=== PATIENT | male | born 1955 | race Native Hawaiian/Other Pacific Islander ===

== ENCOUNTER 2016-03-17 14:43 | Outpatient (CLI) | payer BC ==
[2016-03-17 15:27] LABS: BASOPHILS % 0.6 (0.0-1.5); LYMPHOCYTES # 1.8 # k/uL (0.6-4.0); MEAN CORPUSCULAR HEMOGLOBIN 28.1 pg (28.0-34.0); MONOCYTES # 0.4 # k/uL (0.0-0.9); NEUTROPHILS # 3.7 # k/uL (1.4-7.7)
[2016-03-17 15:53] LABS: eGFR (African) > 60; eGFR (Non-African) > 60
--- NOTE | 2016-03-17 18:37 | Diagnostic Imaging Report ---
[facility] [id number] [facility].[address] [address] Report Submission Date: Mar 17, 2016 4:40:17 PM TRACKMAN Patient Study Name: YARA DOUGLAS Date: Mar 17, 2016 3:34:46 PM TRACKMAN Modality Type: CR Gender: M Description: SPINE : 59 Institution: [facility] Physician: MKEHI LEWIS Lumbar spine, 3 views. History: Lower back pain, PT STATES POSSIBLE RHEUMATOID ARTHRITIS (Hx) Findings: The vertebral height and vertebral alignment are normal. No significant invertebral disc space narrowing is identified. The sacroiliac joints are normal. Impression: 1. No osseous abnormality. Electronically signed on Mar 17, 2016 4:40:17 PM TRACKMAN by: Emanuel TOLENTINO
--- NOTE | 2016-03-17 18:38 | Diagnostic Imaging Report ---
[facility] [address] [facility].[address] [address] Report Submission Date: Mar 17, 2016 4:41:37 PM RECEIVING CHECKER Patient Study Name: YARA DOUGLAS Date: Mar 17, 2016 3:46:49 PM RECEIVING CHECKER Modality Type: CR Gender: M Description: PELVIS : 59 Institution: [facility] Physician: MEKHI LEWIS Sacroiliac joints, 2 views. History: Lower back pain and possible rheumatoid arthritis. Findings: The bilateral sacroiliac joints are normal. There is no acute fracture. The joint is normal without evidence of narrowing, sclerosis, or erosion. Impression: 1. No osseous abnormality. Normal sacroiliac joints. Electronically signed on Mar 17, 2016 4:41:37 PM RECEIVING CHECKER by: Emanuel TOLENTINO
--- NOTE | 2016-03-20 09:32 | OP Clinic Progress Note ---
REFERRING PHYSICIAN: Dr. Isaac Briggs Dear Dr. Briggs: REASON FOR VISIT: I had the pleasure of seeing Mirza Garza in follow up for his psoriatic arthritis. I started him on methotrexate 3 tablets weekly and he has tolerated that well with no shortness of breath, cough, mouth sores, nausea or vomiting. He has not noted any improvement in his skin. He still has involvement of the elbows and most of his back and abdomen. His elbows continue to bother him with swelling and pain. He has healed well from his bilateral knee replacements and is quite content. PAST MEDICAL HISTORY: 1. Bilateral knee replacements. 2. Psoriasis. 3. Headaches. PRESENT MEDICATIONS: 1. Celebrex 200 mg daily. 2. Aspirin. 3. [place]. 4. Methotrexate 3 tablets weekly. 5. Folic acid, however, has not been taking it. ALLERGIES: He has no known drug allergies. REVIEW OF SYSTEMS: No fevers, chills, sweats, chest pain, shortness of breath, cough, wheezing, nausea, vomiting, or diarrhea. Skin rash is unchanged. PHYSICAL EXAMINATION: GENERAL: He looks well. VITAL SIGNS: T: 97, R: 12, heart rate of 80, BP: 130/90. HEENT: Sclerae are anicteric. Conjunctivae are pink. No stomatitis or glossitis. LUNGS: Clear bilaterally with no crackles or wheezing. HEART: Regular rhythm. ABDOMEN: Soft and nontender. VASCULAR: No edema or cyanosis. PERIPHERAL JOINTS: The DIPs and PIPs show no swelling MCPs and wrists are unremarkable. Both elbows, however, are swollen with mild flexion deformities. Shoulders, AC/SC and TMJ joints move well. Hips and knees were unremarkable. Back: Straightening with no lumbar lordosis. Skin: Extensive psoriatic plaques over the elbows and trunk. IMPRESSION: 1. Psoriasis. 2. Psoriatic arthritis. PLAN: 1. I am bumping up his methotrexate to 6 tablets weekly. 2. I gave him another prescription for folic acid supplementation. 3. I am x-raying his lumbar spine and his SI joints today for possible axial disease. 4. We will be checking his labs for disease activity and drug toxicity. 5. I am also screening him for viral hepatitis and tuberculosis. 6. I will see him back in 4 weeks. Thank you very much for the opportunity to participate in the care of your patient. Best regards, cc: Dr. Isaac TOLENTINO
== END 2016-03-17 14:44 ==
LOC: RHEU 14:43
PROVIDERS: ATTEND Internal Medicine
DX: L40.50 Arthropathic psoriasis, unspecified (principal); Z79.899 Other long term (current) drug therapy; M54.10 Radiculopathy, site unspecified
CPT/HCPCS: 36415; 72100; 72202; 80053; 85025; 85651; 86140; 86480; 86803; 87340; 99214

== ENCOUNTER 2016-04-14 14:47 | Outpatient (CLI) | payer BC ==
[2016-04-14 15:41] LABS: BASOPHILS % 0.3 (0.0-1.5); EOSINOPHILS % 1.7 % (0.0-6.8); LYMPHOCYTES # 1.7 # k/uL (0.6-4.0); MEAN CORPUSCULAR HEMOGLOBIN 27.5 pg (28.0-34.0); MONOCYTES # 0.4 # k/uL (0.0-0.9); MONOCYTES % 6.2 % (0.0-11.0); NEUTROPHILS # 4.2 # k/uL (1.4-7.7)
[2016-04-14 16:04] LABS: eGFR (African) > 60; eGFR (Non-African) > 60
--- NOTE | 2016-04-15 07:06 | Diagnostic Imaging Report ---
[facility] [id number] [facility] [address] [place], [place]. [address] ~ ~ ~ ~ Report Submission Date: Apr 14, 2016 4:05:58 PM LOTTERIES AGENT Patient ~ Study Name: YARA DOUGLAS ~ Date: Apr 14, 2016 3:36:58 PM LOTTERIES AGENT ~ Modality Type: CR Gender: M ~ Description: CHEST : 59 ~ Institution: [facility] Physician JOSHUA GAMING ~ ~ ~ Chest two views HISTORY: ~ Cough and difficulty breathing FINDINGS: ~ Low lung volumes are observed. ~Central pulmonary artery enlargement is present. ~There is no infiltrate or pleural effusion. ~Heart size is normal. IMPRESSION: ~ Low lung volumes and equivocal pulmonary hypertension. ~ Electronically signed on Apr 14, 2016 4:05:58 PM LOTTERIES AGENT by: Sy TOLENTINO
--- NOTE | 2016-04-17 10:16 | OP Clinic Progress Note ---
REFERRING PHYSICIAN: Dr. Isaac Briggs Dear Dr. Briggs: REASON FOR VISIT: I had the pleasure of seeing Mirza Garza in follow up of his psoriasis and psoriatic arthritis. He is on 6 tablets of methotrexate weekly and has not noted any improvement in his skin. He still has pain in his knees and his hands. The main issue is, looking at his labs, the CBC and CMP are unremarkable, however, his QuantiFERON TB Gold test came back positive. Hepatitis B and C were negative. PAST MEDICAL AND SURGICAL HISTORY: 1. Bilateral knee replacements. 2. Psoriasis. 3. Headaches. 4. Psoriatic arthritis. PRESENT MEDICATIONS: As above. ALLERGIES: He has no drug allergies. REVIEW OF SYSTEMS: He does have a dry cough. He cannot recall his last chest x-ray. He lives with 1 person. He has had no fevers, chills, sweats, or night sweats. No weight loss. No productive cough. No hemoptysis. No belly pain, nausea, or vomiting. PHYSICAL EXAMINATION: VITAL SIGNS: T: 97.2, R: 18, heart rate 87, BP: 130/80. HEENT: Sclerae are anicteric. Conjunctivae are pink. No stomatitis or glossitis. LUNGS: Clear. HEART: Regular rhythm. ABDOMEN: Soft. SKIN: He has got scaly patches of psoriasis on his elbows and knees. JOINTS: Some tenderness and swelling of his fingers. IMPRESSION: 1. Psoriasis and psoriatic arthritis. I am bumping up his methotrexate to 8 tablets weekly. Continue folic acid. 2. Positive QuantiFERON TB Gold test. I am obtaining a chest x-ray and we will make arrangements for a consultation with Infectious Disease. Thank you very much. Best regards, cc: Dr. Isaac Briggs [facility] CENT[facility]
== END 2016-04-14 14:50 ==
LOC: RHEU 14:47
PROVIDERS: ATTEND Internal Medicine
DX: Z51.81 Encounter for therapeutic drug level monitoring (principal); Z79.899 Other long term (current) drug therapy; L40.50 Arthropathic psoriasis, unspecified
CPT/HCPCS: 36415; 71020; 80053; 85025; 85651; 86140; 86480

== ENCOUNTER 2016-06-16 13:41 | Outpatient (CLI) | payer BC ==
[2016-06-16 15:21] LABS: BASOPHILS % 0.5 (0.0-1.5); EOSINOPHILS % 1.6 % (0.0-6.8); MEAN CORPUSCULAR VOLUME 85.4 fl (80.0-100.0); MONOCYTES % 5.3 % (0.0-11.0)
[2016-06-16 15:32] LABS: eGFR (African) > 60; eGFR (Non-African) > 60
--- NOTE | 2016-06-19 09:21 | OP Clinic Progress Note ---
REFERRING PHYSICIAN: Dr. Isaac Briggs REASON FOR VISIT: Mirza Garza returns for follow up for psoriatic arthritis, specifically arthritis mutilans. He thinks overall his joints are improved. His skin has slightly improved. He still has some pain at his elbows and morning stiffness is maybe 15 minutes. He has no neck and back pain. He has had no fevers, chills, or sweats. He is no longer coughing. On his last visit, his QuantiFERON-TB Gold was repeated and it is now negative. He did, however, see Dr. Torres from infectious disease and complained of a cough with hemoptysis. AFB cultures were obtained and dropped off at [facility]. Results have not yet returned. A chest x-ray on April 14 was unremarkable. Hepatitis B and C were negative. PAST MEDICAL HISTORY: 1. Bilateral knee replacements. 2. Psoriasis. 3. Headaches. 4. Psoriatic arthritis. PRESENT MEDICATIONS: 1. Methotrexate 8 tablets weekly. 2. Folic acid 1 mg daily. REVIEW OF SYSTEMS: No fevers, chills, sweats, chest pain, shortness of breath, cough, wheezing, nausea, vomiting, or diarrhea. PHYSICAL EXAMINATION: GENERAL: On exam, he looks well. VITAL SIGNS: Weight: 221 pounds. Height: 5 feet 9 inches. T: 97.7, R: 18 , heart rate 71, BP: 130/82. HEENT: Sclerae are anicteric. Conjunctivae are pink. No stomatitis or glossitis. LUNGS: Clear bilaterally with no crackles or wheezing. HEART: Regular rhythm. ABDOMEN: Soft and nontender. VASCULAR: No edema or cyanosis. PERIPHERAL JOINTS: No synovitis at the DIPs, PIPs, MCPs, wrists, elbows, shoulders, hips, knees, ankles, and feet. His fingers appear improved. SKIN: Still some scaly patches of psoriasis at the elbows and lower legs. DIAGNOSTIC STUDIES: Note his last sedimentation rate was 14 on April 14 and CBC within normal limits. CRP was 3.19. AST and ALT were 17 and 17, respectively. Creatinine was 0.7. 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 PLAN: 1. We will obtain his AFB studies. 2. No changes at this time. Will not proceed to biologic therapy at this time , pending AFB results. 3. I will see the patient in 2 months. Thank you very much. Best regards, cc: Dr. Isaac TOLENTINO
== END 2016-06-16 13:42 ==
LOC: RHEU 13:41
PROVIDERS: ATTEND Internal Medicine
DX: L40.50 Arthropathic psoriasis, unspecified (principal)
CPT/HCPCS: 36415; 80053; 85025; 85651; 86140; 99214

== ENCOUNTER 2016-08-11 14:14 | Outpatient (CLI) | payer BC ==
--- NOTE | 2016-08-15 12:43 | OP Clinic Progress Note ---
REASON FOR VISIT: Mirza Garza returns for follow up of psoriatic arthritis, i.e. arthritis mutilans. He is not doing well. He is having excruciating pain in his left elbow, moderate pain in the right elbow. He still has puffiness in his hands. His skin has not improved. Morning stiffness is about 30 minutes. He has had a positive QuantiFERON-TB Gold. Sputum culture has been negative. Chest x-ray is unremarkable. He has been on Rifampin 300 mg 2 tablets daily for the past month. Hepatitis B and hepatitis C were negative. PAST MEDICAL HISTORY: 1. Bilateral knee replacements. 2. Psoriasis. 3. Psoriatic arthritis. 4. Chronic headaches. PRESENT MEDICATIONS: 1. Methotrexate 8 tablets weekly. 2. Folic acid 1 mg daily. REVIEW OF SYSTEMS: No fevers, chills, sweats, chest pain, shortness of breath, cough, or wheezing. No change in his weight. PHYSICAL EXAMINATION: General: On exam, he looks well. VITAL SIGNS: He is afebrile. Height: 6 feet. Weight: 220. T: 97.6, R: 12, heart rate: 76, BP: 130/80. HEENT: Sclerae are anicteric. Conjunctivae are pink. No stomatitis or glossitis. LUNGS: Clear bilaterally with no crackles or wheezing. HEART: Regular rhythm. ABDOMEN: Soft and nontender. VASCULAR: No edema or cyanosis. PERIPHERAL JOINTS: Synovitis at the DIPs and PIPs and the toes. Left elbow flexion deformity with swelling and tenderness. Right elbow is tender. Wrists , shoulders, and groin is unremarkable. Bilateral knee replacement scars are noted. SKIN: Extensive psoriatic plaques about the knees and elbows. IMPRESSION: 1. Psoriasis. 2. Psoriatic arthritis, failing his present regimen. 3. Latent tuberculosis (TB), on treatment. PLAN: 1. I would like to start this patient on Humira 40 mg subcutaneous every other week and this may require a letter of medical necessity. Note, his last labs from June 16, sedimentation rate remains elevated at 31. CBC was within normal limits. CRP elevated at 1.69. AST and ALT are normal. AFB cultures were negative x3. 2. Follow up in 2 months. Thank you very much. cc: Dr. Isaac TOLENTINO
== END 2016-08-11 14:24 ==
LOC: RHEU 14:14
PROVIDERS: ATTEND Internal Medicine
DX: L40.50 Arthropathic psoriasis, unspecified (principal); Z79.899 Other long term (current) drug therapy
CPT/HCPCS: 99214

== ENCOUNTER 2016-11-10 14:18 | Outpatient (CLI) | payer BC ==
--- NOTE | 2016-11-13 15:52 | OP Clinic Progress Note ---
REASON FOR VISIT: Mirza Garza returns for follow up on his psoriasis and psoriatic arthritis , subtype arthritis mutilans. He failed methotrexate. He has not been taking it. He has had 2 injections of Humira and he is doing great. His skin is improved. The swelling and pain in his elbows have resolved. He has full range of motion. The puffiness in his hands and toes has also improved. Morning stiffness is less than 15 minutes. History of positive QuantiFERON-TB Gold and negative sputum and a normal chest x -ray. He has completed rifampin. Hepatitis B and C were negative. PAST MEDICAL HISTORY: 1. Bilateral knee replacements. 2. Psoriasis. 3. Psoriatic arthritis. 4. Chronic headaches. PRESENT MEDICATIONS: Humira 40 mg subcutaneous every other week. REVIEW OF SYSTEMS: No fevers, chills, sweats, chest pain, shortness of breath, cough, wheezing, nausea, vomiting, or diarrhea. PHYSICAL EXAMINATION: VITAL SIGNS: Height: 6 feet. Weight: 222. T: 97.5, R: 18, Heart rate of 60 , BP: 130/78. HEENT: Sclerae are anicteric. Conjunctivae are pink. No stomatitis or glossitis. LUNGS: Clear bilaterally with no crackles or wheezing. HEART: Regular rhythm. ABDOMEN: Soft and nontender. VASCULAR: No edema or cyanosis. Skin: Scalp is totally clear of psoriasis. Elbows show minimal lesions. Minimal lesions on the legs. JOINTS: DIPs, PIPs, MCPs, wrists, elbows, shoulders, hips, knees, ankles, and feet show no active synovitis. IMPRESSION: 1. Psoriasis. 2. Arthritis mutilans. PLAN: He is doing well. Continue Humira. I will see him in February. Thank you very much. cc: Dr. Isaac TOLENTINO
== END 2016-11-10 14:20 ==
LOC: RHEU 14:18
PROVIDERS: ATTEND Internal Medicine
DX: L40.9 Psoriasis, unspecified (principal); L40.52 Psoriatic arthritis mutilans
CPT/HCPCS: 99213

== ENCOUNTER 2017-04-13 13:12 | Outpatient (CLI) | payer BC ==
--- NOTE | 2017-04-16 11:57 | OP Clinic Progress Note ---
REASON FOR VISIT: Mirza Garza returns for follow up on his psoriasis with psoriatic mutilans. He is doing very well. He has no joint pain. His skin is a little active but he is quite happy. He remains on Humira subcutaneous every other week. Let us recall that he has failed methotrexate and also had an issue of tolerating it causing flu-like symptoms. Otherwise, pain is zero over 10. Morning stiffness is less than 15 minutes. History of positive QuantiFERON-TB Gold. He has completed his course of Rifampin. The infectious disease note is reviewed. It suggested the QuantiFERON-TB Gold may remain positive in the future. They also suggested hepatitis testing, which I have already done and those were negative. PAST MEDICAL HISTORY: 1. Bilateral knee replacements. 2. Psoriasis. 3. Arthritis mutilans. 4. Chronic headaches. PRESENT MEDICATIONS: Humira subcutaneous every other week. REVIEW OF SYSTEMS: He has had no fevers, chills, sweats, chest pain, shortness of breath, cough, wheezing, nausea, vomiting, or diarrhea. PHYSICAL EXAMINATION: VITAL SIGNS: Height: 6 feet. Weight: 236. T: 97, R: 20, heart rate 72, BP : 139/76. HEENT: Some scalp lesions of psoriasis, otherwise, sclerae are anicteric. Conjunctivae are pink. No stomatitis or glossitis. LUNGS: Clear with no crackles or wheezing. HEART: Regular rhythm. ABDOMEN: Soft and nontender. SKIN: Psoriatic plaques on the right elbow and right anterior lower leg. VASCULAR: Shows no edema or cyanosis. PERIPHERAL JOINTS: DIPs, PIPs, MCPs, wrists, elbows, shoulders, hips, knees, ankles, and feet all show no deformities. No synovitis. No tenderness. 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 IMPRESSION AND PLAN: 1. Psoriasis. 2. Psoriatic arthritis subtype mutilans. 3. High risk drug. 4. History of positive QuantiFERON-TB Gold. Completed the treatment course for latent tuberculosis infection. Thank you very much. cc: Dr. Brigitte TOLENTINO
== END 2017-04-13 13:13 ==
LOC: RHEU 13:12
PROVIDERS: ATTEND Internal Medicine
DX: L40.9 Psoriasis, unspecified (principal); L40.52 Psoriatic arthritis mutilans; Z79.899 Other long term (current) drug therapy
CPT/HCPCS: 99213; 99214

== ENCOUNTER 2017-10-12 13:17 | Outpatient (CLI) | payer BC ==
--- NOTE | 2017-10-12 17:27 | OP Clinic Progress Note ---
REASON FOR VISIT: Mirza Garza returns for follow up on his psoriasis and psoriatic arthritis. He has previously failed synthetic DMARDs and was doing well on Humira until a couple of months ago when he noticed worsening psoriasis. It now involves the trunk and all 4 extremities. He has also developed some lesions in the palm. Morning stiffness is 15 minutes and he has no swollen tender joints. PAST MEDICAL AND SURGICAL HISTORY: 1. Bilateral knee replacements. 2. Psoriasis. 3. Arthritis mutilans. 4. Chronic headaches. 5. Positive [id number] Gold, treated. PRESENT MEDICATIONS: None. REVIEW OF SYSTEMS: As per the HPI, as well as no fevers, chills, sweats, chest pain, shortness of breath, cough, wheezing, nausea, vomiting, or diarrhea. PHYSICAL EXAMINATION: GENERAL: He looks well. VITAL SIGNS: Vital signs are stable. Height: 6 feet. Weight: 229 pounds. T: 97.8, R: 20, heart rate 69, BP: 111/65. HEENT: Sclerae are anicteric. Conjunctivae are pink. No stomatitis or glossitis. LUNGS: Clear bilaterally with no crackles or wheezing. HEART: Regular rate and rhythm. ABDOMEN: Soft and nontender. VASCULAR: No edema or cyanosis. JOINTS: No synovitis at the DIPs, PIPs, MCPs, wrists, elbows, shoulders, hips, knees, ankles, and feet. SKIN: Remarkable for plaque psoriasis of the trunk and extremities, as well as palmar pustular psoriasis. IMPRESSION: 1. Psoriasis, doing worse. 2. 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 PLAN: 1. I would like to switch him to Cosentyx and I gave him a prescription loading dose, 150 mg for week zero, 1, 2, 3, and 4 followed by 150 mg every 4 weeks. 2. I will see him back in 2 months and consider increasing his dose to 300 mg if needed. This may be deemed a letter of medical necessity. Thank you very much. cc: Dr. Isaac TOLENTINO
== END 2017-10-12 13:19 ==
LOC: RHEU 13:17
PROVIDERS: ATTEND Internal Medicine
DX: L40.9 Psoriasis, unspecified (principal); L40.3 Pustulosis palmaris et plantaris
CPT/HCPCS: 99213; 99214

== ENCOUNTER 2017-12-14 13:13 | Outpatient (CLI) | payer BC ==
--- NOTE | 2017-12-17 15:12 | OP Clinic Progress Note ---
REASON FOR VISIT: Mirza Garza returns for follow up of psoriasis and psoriatic arthritis. His joints are doing well with no joint swelling, warmth, tenderness, or pain and he does all activities. However, his psoriasis has gotten worse. It involves the trunk and extremities. He has been on Cosentyx 150 mg every 4 weeks. PAST MEDICAL AND SURGICAL HISTORY: 1. Bilateral knee replacements. 2. Psoriasis. 3. Arthritis mutilans. 4. Chronic headaches. 5. Positive QuantiFERON-TB Gold, treated. PRESENT MEDICATIONS: Cosentyx 150 mg subcutaneous every 4 weeks. REVIEW OF SYSTEMS: No fevers, chills, sweats, chest pain, shortness of breath, cough, wheezing, nausea, vomiting, or diarrhea. PHYSICAL EXAMINATION: VITAL SIGNS: T: 98.7, P: 70, BP: 138/77, R: 20. Weight: 224. HEENT: Sclerae are anicteric. Conjunctivae are pink. No stomatitis or glossitis. LUNGS: Clear bilaterally with no crackles or wheezing. HEART: Regular rate and rhythm. ABDOMEN: Soft and nontender. VASCULAR: No edema or cyanosis. PERIPHERAL JOINTS: No synovitis at the DIPs, PIPs, MCPs, wrists, elbows, shoulders, hips, knees, ankles, and feet. SKIN EXAM: Reveals involvement of 24% of his body with lesions on his legs, elbows, trunk, and extremities. IMPRESSION: 1. Psoriasis. Failing present regimen. 2. Psoriatic arthritis, stable. PLAN: 1. I am bumping up his Cosentyx to 300 mg subcutaneous every 4 weeks. 2. I will see him back in January. This may deemed a letter of medical necessity. cc: Dr. Isaac TOLENTINO
== END 2017-12-14 13:14 ==
LOC: RHEU 13:13
PROVIDERS: ATTEND Internal Medicine
DX: L40.9 Psoriasis, unspecified (principal); L40.52 Psoriatic arthritis mutilans
CPT/HCPCS: 99213; 99214

== ENCOUNTER 2018-02-15 11:29 | Outpatient (CLI) | payer BC ==
--- NOTE | 2018-02-15 13:32 | OP Clinic Progress Note ---
REASON FOR VISIT: Mirza Garza returns for follow up of psoriasis and psoriatic arthritis, mutilans type. He has not been on Consentyx for the past couple of months. He has been having difficulty getting his prescriptions refilled. With that, he has had recurrent pain in his elbows and hands, as well as recurrent rashes of his elbows and legs. Otherwise, no fevers, chills, sweats, chest pain, shortness of breath, cough or wheezing. PHYSICAL EXAMINATION: VITAL SIGNS: BP: 130/80, P: 65, R: 16, T: 97. HEENT: Sclerae are anicteric. Conjunctivae are pink. No oral lesions. LUNGS: Clear. HEART: Regular rate and rhythm. ABDOMEN: Soft. SKIN: He has plaques on his legs and arms representing about 12% of total body surface area. VASCULAR: Shows no edema or cyanosis. JOINTS: Tenderness at the elbows, as well as the DIPs. IMPRESSION: Psoriasis and psoriatic arthritis, active. PLAN: 1. We contacted his pharmacy today. 2. I referred him to Dr. Dixie Rios for further care. Thank you very much. Best regards, cc: Dr. Isaac TOLENTINO
== END 2018-02-15 11:35 ==
LOC: RHEU 11:29
PROVIDERS: ATTEND Internal Medicine
DX: L40.52 Psoriatic arthritis mutilans (principal); L40.9 Psoriasis, unspecified
CPT/HCPCS: 99212